=== PATIENT | female | born 1955 | race Caucasian/White ===

== ENCOUNTER 2016-07-05 09:24 | Day surgery (SDC) | payer BC ==
[~2016-07-05 09:24] MED LIST: ASAB; FLEXERIL5 MG PO; HYDROCHLOROT25 MG PO; MOBIC7.5 PO; PR25 PO; PRIN5 PO; PROTONIX PO; TOPXL25 PO; ULTRAM50 PO
[2016-07-05 10:17] LABS: BASOPHILS 0.7 %; BASOPHILS ABSOLUTE 0.03 10/3/uL (0.0-0.16); EOSINOPHILS 1.6 %; EOSINOPHILS ABSOLUTE 0.07 10/3/uL (0.0-0.53); HEMATOCRIT 40.2 % (36.0-48.0); HEMOGLOBIN 13.9 g/dL (12.0-16.0); IMMATURE GRANULOCYTES 0.2 %; IMMATURE GRANULOCYTES ABSOLUTE 0.01 10/3/uL (0.0-0.11); LYMPHOCYTES 36.4 %; LYMPHOCYTES ABSOLUTE 1.64 10/3/uL (0.67-4.30); MEAN CORPUS HGB CONC 34.6 g/dL (32.0-36.0); MEAN CORPUSCULAR VOLUME 83.8 fL (80-100); MEAN PLATELET VOLUME 12.4 fL (9.2-13.0); MONOCYTES 10.6 %; MONOCYTES ABSOLUTE 0.48 10/3/uL (0.21-1.20); NEUTROPHILS 50.5 %; NEUTROPHILS ABSOLUTE 2.28 10/3/uL (2.02-8.40); PLATELET COUNT 182 10/3/uL (150-400); WHITE BLOOD CELLS 4.5 10/3/uL (4.5-10.5)
[2016-07-05 10:18] LABS: MANUAL DIFF NO %; RETICULOCYTE COUNT 1.5 % (0.5-2.5)
[2016-07-05 10:26] LABS: BUN (BLOOD UREA NITROGEN) 12 MG/DL (6-23); CALCIUM, SERUM 9.2 MG/DL (8.5-10.4); CHLORIDE, SERUM 98 MMOL/L (96-112); CO2 (CARBON DIOXIDE) 29 MMOL/L (24-34); CREATININE 0.92 MG/DL (0.55-1.02); GFR AFRICAN AMERICAN 77 ML/MIN (>=60); GFR NON AFRICAN AMERICAN 66 ML/MIN (>=60); GLUCOSE, SERUM 291 MG/DL (60-99); POTASSIUM, SERUM 3.6 MMOL/L (3.5-5.3); SODIUM, SERUM 137 MMOL/L (135-148)
[2016-07-20] MEDS ORDERED: GLUCOTROL5 PO (15:52)
[2016-07-20] MEDS ORDERED: KLONO2 PO (15:52)
[2016-07-20] MEDS ORDERED: GLUCPH PO (15:53)
== END 2016-07-05 15:51 | disposition home or self-care (01) ==
LOC: SDC 09:24
PROVIDERS: Pathology Cytopathology
PROC: 07DR3ZX Extraction of Iliac Bone Marrow, Percutaneous Approach, Diagnostic (ICD-10-PCS; principal; 2016-07-05 10:00)
DX: C83.30 Diffuse large B-cell lymphoma, unspecified site (principal); M19.90 Unspecified osteoarthritis, unspecified site; M79.7 Fibromyalgia; I49.9 Cardiac arrhythmia, unspecified; K21.9 Gastro-esophageal reflux disease without esophagitis; F41.9 Anxiety disorder, unspecified; F32.9 Major depressive disorder, single episode, unspecified; Z79.899 Other long term (current) drug therapy; Z88.8 Allergy status to other drugs, medicaments and biological substances; Z90.710 Acquired absence of both cervix and uterus; Z98.890 Other specified postprocedural states
CPT/HCPCS: 80048; 82962; 85025; 85045; 88305; 88311; 88313

== ENCOUNTER 2016-07-24 10:47 | Day surgery (SDC) | payer BC ==
--- NOTE | ~2016-07-24 | OP ---
Record Of Operation [facility] [address] [place]. [address] NAME: ELO BOYCE : 51 STATUS : [facility]#: [id number] AGE: 61 ADM/REG DATE : 07/24/16 MR#: [id number] REPORT SERV DATE: 07/24/16 DICTATED BY: NATE PATTERSON DATE: 07/24/16 REPORT STATUS : Draft TRANSCRIBED BY: VIKI DATE: 07/24/16 DATE OF PROCEDURE: PREOPERATIVE DIAGNOSIS: Large B-cell lymphoma. POSTOPERATIVE DIAGNOSIS: Large B-cell lymphoma. PROCEDURE: Placement of a right chest wall port. INDICATION FOR THE PROCEDURE: Ms. Boyce is a quite healthy, 61-year-old female, whom I diagnosed with a left breast lymphoma in the past. A port was placed and she had chemotherapy treatment which went quite well. The patient's port was removed two years ago and unfortunately, she has been diagnosed recently with recurrence. Plans are for additional intravenous treatment and she will need a port placed. OPERATIVE FINDINGS: After appropriate consent was noted on the chart, the patient was taken to the operating room in supine position. She was placed under monitored anesthesia without any complications. The bilateral chest wall was prepped and draped in sterile fashion. The local anesthetic was utilized to infiltrate the prior scar in the right upper chest wall as well as the needle access site. The Seldinger needle was utilized with a single pass to access the right subclavian vein nonpulsatile venous appearing blood was noted in the syringe and the syringe removed. A wire was placed with ease and fluoroscopy noted the wire to be in good position in the vena cava. The wire was secured to the drapes and the incision made with a #15 blade. The scar was excised during this portion of the case. Dissection was carried down to the port pocket and the port pocket reopened with Bovie cauterization. Stay sutures were placed at the 3 o'clock and 9 o'clock position of Prolene. These sutures were secured for later use. The dilator with tear-away sheath was then placed over the wire. With constant movement of the wire, the vein was dilated. The dilator and wire were removed leaving the sheath in the vein. The catheter was passed into the vein and the sheath torn away. The catheter was then secured to the port at the distal port pocket with the securing device. The port was noted to aspirate and flush with ease. It was packed with heparinized saline. The port was secured into the port pocket with stay sutures and a final shot of fluoroscopy noted the port to be in good position in the vena cava. The wound was copiously irrigated with warm saline and hemostasis achieved, and the incision closed in two layers of Monocryl. The skin was cleansed and dried. Dermabond overlaid. The patient was awoken from anesthesia without complication, taken to the PACU in stable condition for recovery. All counts were correct at the end of the case. ESTIMATED BLOOD LOSS: 10 mL. COMPLICATIONS: None. SPECIMENS: None. Record Of Operation [address] [address] NAME: ELO BOYCE : 51 STATUS : [facility]#: [id number] AGE: 61 ADM/REG DATE : 07/24/16 MR#: [id number] REPORT SERV DATE: 07/24/16 DICTATED BY: NATE PATTERSON DATE: 07/24/16 REPORT STATUS : Draft TRANSCRIBED BY: VIKI DATE: 07/24/16 JAH/VIKI Nate Patterson MD / [id number] CC: MD Bg Small M.D. [facility] Isra Barber M.D.
[~2016-07-24 10:47] MED LIST changes: +GLUCOTROL5 PO; +GLUCPH PO; +KLONO2 PO
[2016-07-24 11:31] LABS: BUN (BLOOD UREA NITROGEN) 22 MG/DL (6-23); CALCIUM, SERUM 9.3 MG/DL (8.5-10.4); CHLORIDE, SERUM 101 MMOL/L (96-112); CO2 (CARBON DIOXIDE) 29 MMOL/L (24-34); CREATININE 1.14 MG/DL (0.55-1.02); GFR AFRICAN AMERICAN 59 ML/MIN (>=60); GFR NON AFRICAN AMERICAN 51 ML/MIN (>=60); GLUCOSE, SERUM 162 MG/DL (60-99); POTASSIUM, SERUM 3.5 MMOL/L (3.5-5.3); SODIUM, SERUM 141 MMOL/L (135-148)
[2016-07-24 11:38] LABS: BASOPHILS 0.7 %; BASOPHILS ABSOLUTE 0.04 10/3/uL (0.0-0.16); EOSINOPHILS 0.7 %; EOSINOPHILS ABSOLUTE 0.04 10/3/uL (0.0-0.53); HEMATOCRIT 41.5 % (36.0-48.0); HEMOGLOBIN 13.7 g/dL (12.0-16.0); IMMATURE GRANULOCYTES 0.2 %; IMMATURE GRANULOCYTES ABSOLUTE 0.01 10/3/uL (0.0-0.11); LYMPHOCYTES 38.8 %; LYMPHOCYTES ABSOLUTE 2.16 10/3/uL (0.67-4.30); MEAN CORPUSCULAR HEMOGLOB 27.9 pg (26.0-34.0); MEAN CORPUSCULAR VOLUME 84.5 fL (80-100); MEAN PLATELET VOLUME 12.8 fL (9.2-13.0); MONOCYTES 12.9 %; MONOCYTES ABSOLUTE 0.72 10/3/uL (0.21-1.20); NEUTROPHILS 46.7 %; NEUTROPHILS ABSOLUTE 2.59 10/3/uL (2.02-8.40); RBC DISTRIBUTION WIDTH 12.9 % (12.0-16.0); RED CELL COUNT 4.91 10/6/uL (4.0-5.6); WHITE BLOOD CELLS 5.6 10/3/uL (4.5-10.5)
[2016-07-24 11:41] LABS: MANUAL DIFF NO %; PLATELET COUNT 251 10/3/uL (150-400)
== END 2016-07-24 15:39 | disposition home or self-care (01) ==
LOC: SDC 10:47
PROVIDERS: Surgery Surgical Oncology
PROC: 0JH60XZ Insertion of Tunneled Vascular Access Device into Chest Subcutaneous Tissue and Fascia, Open Approach (ICD-10-PCS; principal; 2016-07-24 12:15)
DX: C83.52 Lymphoblastic (diffuse) lymphoma, intrathoracic lymph nodes (principal); E11.9 Type 2 diabetes mellitus without complications; M79.7 Fibromyalgia; Z79.899 Other long term (current) drug therapy; Z79.84 Long term (current) use of oral hypoglycemic drugs; Z88.8 Allergy status to other drugs, medicaments and biological substances
CPT/HCPCS: 71010; 77001; 80048; 82962; 85025; 93005; A9270-GY; C1751; J0690; J1170; J2250; J2370; J2405; J3010